=== PATIENT | female | born 1990 | race African-American/Black ===

== ENCOUNTER 2017-02-23 09:43 | Emergency (ER) | payer OTHER ==
[~2017-02-23] VITALS: Ht 170.2 cm; Wt 59.0 kg
[~2017-02-23 09:43] MED LIST: ACETAMINOPHEN-1 EAC1; ACETAMINOPHEN-1 EAC1 PO; APAP500 PO; CAVAN-FOLATE D1 EACH; CLOTRIMAZOLE-745 GM VG; COLACE 100 MG100 MG; COLACE 100 MG100 MG PO; DERMOPLAST SPRA56 ML; IBUPROFEN 800800 M1; IBUPROFEN 800800 M1 PO; IBUPROFEN 800800 MG PO; IRON325; IRON325 PO; IROSPAN 24/6 T1 EACH PO; LANOLIN56 GM; MACROBID 100 M100 M1 PO; NAPROSYN500 MG PO; NOHOMEMEDICATIONS; NORCO 5-325 TA1 EACH PO; ONDANSETRON HCL4 M2 PO; PHENERGAN 25 MG25 M1 PO; TRINATE TABLET1 TAB PO; ZOFRAN ODT4 MG PO; ZOFRAN4 MG PO
[2017-02-23 10:22] LABS: URINE BILIRUBIN NEGATIVE (Negative); URINE BLOOD NEGATIVE (Negative); URINE CLARITY CLEAR; URINE COLOR YELLOW; URINE GLUCOSE-RANDOM* NEGATIVE (Negative); URINE KETONES NEGATIVE (Negative); URINE LEUKOCYTES NEGATIVE (Negative); URINE NITRITE NEGATIVE (Negative); URINE PROTEIN (DIPSTICK) NEGATIVE (Negative); URINE UROBILINOGEN 0.2 E.U./dl (0.2-1.0)
[2017-02-23] MEDS ORDERED: FLAGYL500 MG PO (12:34)
[2017-09-21] MEDS ORDERED: FLAGYL500 MG PO (18:12)
[2017-09-21] MEDS ORDERED: IBUPROFEN 600600 M1 PO (18:13)
== END 2017-02-23 13:00 | disposition home or self-care (01) ==
LOC: ER 09:43
PROVIDERS: Physician Assistant
DX: O98.812 Other maternal infectious and parasitic diseases complicating pregnancy, second trimester (principal); Z3A.15 15 weeks gestation of pregnancy; Z88.5 Allergy status to narcotic agent